=== PATIENT | female | born 1980 | race Caucasian/White ===

== ENCOUNTER 2018-03-07 01:02 | Outpatient (CLI) | payer MEDICAID, SELFPAY ==
[2018-03-07 11:52] LABS: ALT 19 U/L (12-78); AST 12 U/L (15-37); Albumin 3.6 g/dL (3.4-5.0); Alkaline Phosphatase 36 U/L (46-116); Anion Gap 9.2 mmol/L (3-11); BUN 17 mg/dL (7-18); Bilirubin, Total 0.5 mg/dL (0.2-1.0); CO2 24.8 mmol/L (21.0-32.0); CREATININE 0.74 mg/dL (0.55-1.02); Calcium 8.6 mg/dL (8.5-10.1); Chloride 105 mmol/L (98-107); Cholesterol 244 mg/dL (50-200); Glucose 92 mg/dL (70-100); HDL Cholesterol 61 mg/dL (40-60); LDL CHOLESTEROL 173 mg/dL (<100); Potassium 4.9 mmol/L (3.5-5.1); Sodium 139 mmol/L (136-145); Total Protein 6.9 g/dL (6.4-8.2); Triglyceride 53 mg/dL (30-150)
== END 2018-03-07 01:22 ==
DX: B07.0 Plantar wart (principal); E78.2 Mixed hyperlipidemia; F17.200 Nicotine dependence, unspecified, uncomplicated
CPT/HCPCS: 36415; 80053; 80061; 83721

== ENCOUNTER 2020-10-28 07:01 | Outpatient (CLI) | payer MEDICAID, SELFPAY ==
[2020-10-29 14:15] LABS: COVID-19 RT-PCR UVMMC Result Negative (Negative)
== END 2020-10-28 07:02 | disposition home or self-care (01) ==
PROVIDERS: PCP Nurse Practitioner; Visit Provider Nurse Practitioner
DX: Z20.822 Contact with and (suspected) exposure to COVID-19 (principal)
CPT/HCPCS: U0003

== ENCOUNTER 2020-11-04 03:17 | Outpatient (CLI) | payer MEDICAID, SELFPAY ==
[2020-11-05 19:14] LABS: COVID-19 RT-PCR UVMMC Result Negative (Negative)
== END 2020-11-04 03:18 | disposition home or self-care (01) ==
LOC: LBO 03:17
PROVIDERS: PCP Nurse Practitioner; Visit Provider Nurse Practitioner
DX: Z20.822 Contact with and (suspected) exposure to COVID-19 (principal)
CPT/HCPCS: U0003

== ENCOUNTER 2024-08-17 14:39 | Emergency (ER) | payer MEDICAID, SELFPAY ==
--- NOTE | 2024-08-17 14:45 | DI.RAD_ITS ---
Exam(s) XR KNEE LT 3V AP,LAT,SURESH EXAM: XR KNEE LT 3V AP,LAT,SURESH CLINICAL HISTORY: ski injury L knee pain. TECHNIQUE: 2D digital imaging was performed. Three views. COMPARISON: No exams were available for comparison FINDINGS: BONES: There is a fracture at the level of the tibial spines which appears mildly comminuted but not significantly displaced. No bony destructive lesion is seen. JOINTS: The knee is normally aligned. A large hemarthrosis is seen. SOFT TISSUE: Normal. IMPRESSION: Mildly comminuted fracture at the level of the tibial spines. Large hemarthrosis. DATA REPOSITORY: RADIATION DOSE DELIVERED:
[2024-08-17 14:48] VITALS: BP 149/90; PULSE 102; RESP 15; TEMP 36.4; O2SAT 98
--- NOTE | 2024-08-17 15:11 | ED.GENADUL_ITS ---
Discharge Plan Disposition Patient Disposition: Home Condition: Stable Discharge Details Clinical Impression: Closed fracture of left tibial plateau, Internal derangement of left knee Primary Care Provider: Annette Fine ED Provider: James Orr Home Meds and New Rx's Prescriptions: No Action (DME) Space Chamber Plus Spacer Inhalation Q4H PRN Qty: 1 0RF Rx Instructions: As directed albuterol sulfate [ProAir HFA] 90 mcg/actuation HFA aerosol inhaler 2 puff Inhalation Q4H PRN PRN (Reason: shortness of breath or wheezing) Qty: 1 6RF Rx Instructions: Spacer Dx 493.90 Asthma Discharge Instructions Instructions: Internal Derangement of the Knee, Lower Leg Fracture ED Additional Instructions: You were seen in the emergency department for the likely left tibial plateau fracture of your left knee. This also could be a small chip or avulsion fracture involving one of the ligaments like the ACL. You need to remain in your knee immobilizer and use crutches, do not weight-bear whatsoever. Please rest, ice, compress and elevate your leg often over the next 1 to 2 weeks while arrangements are made to see orthopedics, Dr. Zamora is aware of your imaging, we did obtain a CT scan as there is potential to need more specialized orthopedic surgeon at [facility], Dr. Zamora's office will be in touch with you regarding these nuances of orthopedic surgery. Please use therapeutic dosing of Tylenol (acetamenophen) & Advil (ibuprofen) in an alternating fashion as follows: Take 1000mg of Tylenol every 6 hours without missing doses- that is 4 times per day. [facility] in between the Tylenol dosings, take 400-600mg of Advil also on a 6 hour schedule, that is also 4 times per day. The daily maximum dosing of Tylenol is 4000mg, and the daily maximum dosing of Advil is 2400mg. This is safe to do for weeks. Please note that some common cold medications & prescription pain medications may contain acetamenophen and you need to read OTC drug labels and factor that in to maximum daily dosings. Please return for any severe unilateral swelling of the calf with skin changes and complete numbness with severe severe pain distal to the left knee. Referrals: [facility] [Provider Group] Annette Fine NP [Primary Care Provider] - Discharge Data Discharge Date/Time-TO BE ENTERED AT DEPARTURE: 08/17/24 15:53 HPI General Date/Time Provider Initiated Documentation: 08/17/24 14:42 . HPI Narrative: 44 year-old female presents to ED today by POV/wheelchair with a chief complaint of ski accident- caught an edge and twisted her L knee- patient is R-foot dominant with onset just prior to arrival. Patient was wearing a helmet, denies headstrike/LOC, has isolated L knee pain. Quality described as severe L knee pain and swelling, no radiation to numbness/tingling distally, femur pain. Severity is described as severe. Palliating factors include nothing attempted yet. Provoking factors include nothing specific. Events leading up to the incident/Associated Symptoms: Patient denies prior surgical history to left knee. Patient not anticoagulated. Related Data Home Medications ?Medication ?Instructions ?Recorded ?Confirmed inhalational spacing device (Space #1 ea 12/23/20 08/17/24 Chamber Plus) albuterol sulfate 90 mcg/actuation 2 puff inhalation Q4H PRN PRN 06/27/21 08/17/24 aerosol inhaler (ProAir HFA) shortness of breath or wheezing ##1 Previous Rx's ?Medication ?Instructions ?Recorded inhalational spacing device (Space #1 ea 12/23/20 Chamber Plus) albuterol sulfate 90 mcg/actuation 2 puff inhalation Q4H PRN PRN 06/27/21 aerosol inhaler (ProAir HFA) shortness of breath or wheezing ##1 Allergies Allergy/AdvReac Type Severity Reaction Status Date / Time erythromycin base AdvReac Unknown Nausea Verified 08/17/24 15:22 General Stated Complaint: Orthopedic VONNIE: 4 Review of Systems All systems reviewed & are unremarkable except as noted in HPI and below Exam Narrative Exam Narrative: GENERAL APPEARANCE: Well-nourished, non-toxic, awake and alert, atraumatic, no acute distress. SKIN: Warm, pink, dry, intact, without rashes/lesions/ulcerations. HEAD: Normocephalic, atraumatic, normal hair distribution for gender/age. EYES: Normal conjunctiva, no exudates on lids/lashes. ENT: Nares patent, no circumoral cyanosis, no facial swelling NECK: Supple, trachea midline, painless cervical ROM. LUNGS/CHEST: Non-labored respirations, normal A/P diameter, symmetrical expansion, no chest wall deformity HEART (CV/PV): Regular rate, L dorsalis pedis pulse 2+, no peripheral edema, no JVD. ABDOMEN: Soft, non-distended, no guarding. MSK: No cyanosis, spine midline without tenderness, normal curvature, diffuse swelling to left knee, joint line tenderness, patella mobile, no obvious ligamentous laxity with patient has significant pain response and does not tolerate special tests well, do question a positive Dioni, no fibular head tenderness or crepitus, neurovascular intact distal to left knee, femur stable NEURO: Mental Status AAOx4 - alert to person, place, time, events No facial droop, no forehead involvement. Motor: No focal weakness - strength 5/5 in bilateral UEs and LEs, proximal and distal, symmetric. Sensory: sensation intact to light touch globally. Gait NT PSYCH: euthymic, cooperative, pleasant, appropriate speech Course Vital Signs Vital signs: Vital Signs Temperature 36.4 C L 08/17/24 14:48 Pulse 102 H 08/17/24 14:48 Respiratory Rate 15 08/17/24 14:48 Blood Pressure 149/90 H 08/17/24 14:48 Pulse Oximetry 98 08/17/24 14:48 Temperature 36.4 C L 08/17/24 14:48 Temperature Source Oral 08/17/24 14:48 Pulse 102 H 08/17/24 14:48 Respiratory Rate 15 08/17/24 14:48 Blood Pressure 149/90 H 08/17/24 14:48 Blood Pressure Position Sitting 08/17/24 14:48 Pulse Oximetry 98 08/17/24 14:48 Oxygen Delivery Method Room Air 08/17/24 14:48 Oxygen Flow Rate 0 08/17/24 14:48 Medical Decision Making This dictation utilizes [id number] dictation software and may contain unedited grammatical errors. 44 year-old female presents to ED today by POV/wheelchair with a chief complaint of ski accident- caught an edge and twisted her L knee- patient is R-foot dominant with onset just prior to arrival. Patient was wearing a helmet, denies headstrike/LOC, has isolated L knee pain. Quality described as severe L knee pain and swelling, no radiation to numbness/tingling distally, femur pain. Severity is described as severe. Palliating factors include nothing attempted yet. Provoking factors include nothing specific. Events leading up to the incident/Associated Symptoms: Patient denies prior surgical history to left knee. Patients' medical history: History of torn meniscus to contralateral leg. Family and social history: Noncontributory. Pertinent exam findings / vital signs include diffuse swelling to left knee, joint line tenderness, patella mobile, no obvious ligamentous laxity with patient has significant pain response and does not tolerate special tests well, do question a positive Dioni, no fibular head tenderness or crepitus, neurovascular intact distal to left knee, femur stable. Differential / pathologies of concern include fracture, ligamentous injury of left knee, meniscus tear. Diagnostic studies of: -XR L knee, CT L knee without. -X-ray shows tibial plateau fracture, needs further CT -CT shows mildly comminuted fracture of the tibial spines as well as medial tibial plateau fracture Interventions of: -Knee immobilizer and crutches, consult with orthopedics, they will follow-up with CT results with the patient as an outpatient if they need to be referred to [facility]. ED Course/Assessment/Plan: 44-year-old female presents after ski injury, twisted her left knee, has significant findings on x-ray and CT warranting likely surgical repair there is possibly meniscus involvement as well as ligamentous injury with the nature of the tibial plateau fractures there is questionable avulsion fractures of ligaments. Placed on orthopedic follow-up list, Dr. Noah deng, counseled on significant RICE therapy and therapeutic dosing of Tylenol and ibuprofen at home and nonweightbearing, patient may need referral to [facility] in the future but this can be addressed at orthopedics visit. Findings not consistent with neurovascular compromise distal to left knee. Disposition of Closed Fracture of Left Tibial Plateau, Internal Derangement of Left Knee. Patient verbalized understanding of the plan and return to ED criteria and engaged in shared decision making. Medical Records Medical records reviewed: Yes I reviewed the patient's medical records. Imaging Data Radiologic Study: Attestation: I personally reviewed and interpreted this imaging study as follows: Imaging: X-Ray Radiologist's impression: EXAM: XR KNEE LT 3V AP,LAT,SURESH CLINICAL HISTORY: ski injury L knee pain. TECHNIQUE: 2D digital imaging was performed. Three views. COMPARISON: No exams were available for comparison FINDINGS: BONES: There is a fracture at the level of the tibial spines which appears mildly comminuted but not significantly displaced. No bony destructive lesion is seen. JOINTS: The knee is normally aligned. A large hemarthrosis is seen. SOFT TISSUE: Normal. IMPRESSION: Mildly comminuted fracture at the level of the tibial spines. Large hemarthrosis. Radiologic Study #2: Attestation: I personally reviewed and interpreted this imaging study as follows: Imaging: CT Scan Radiologist's impression: EXAM: CT LOWER EXTREMITY LT WO CLINICAL HISTORY: L tibial plateau fx. TECHNIQUE: Imaging Protocol: Axial computed tomography images with coronal and sagittal reformatted images were created and reviewed. CONTRAST MATERIAL: Noncontrast COMPARISON: CR XR KNEE LT 3V AP,LAT,SURESH from 08/17/2024 FINDINGS: Bones: There is fracture sent knee mainly transversely through the tibial spin es. There are few adjacent tiny comminuted fragments. There is an additional fracture of the lateral tibial plateau the shows no significant depression. There is lineal sclerosis in the subcortical region of the medial tibial plateau which could indicate additional mild compaction fracture. No discrete fracture line. The distal femur and patella appear intact. No cellulitic or osteomyelitic changes are identified. No lytic or sclerotic lesions are identified. Joints: Large hemarthrosis. There is no significant joint space narrowing. No significant periarticular spurring. Soft Tissues: Normal. IMPRESSION: Mildly comminuted fracture at the tibial spines. Lateral tibial plateau fracture with minimal depression. Question of nondepressed subcortical fracture of the medial tibial plateau. Quality:SDOH Health Related Social Needs: No Data to Display PFSH All Active Problems (Updated 08/17/24 @ 15:20 by PRINCE Brock) Internal derangement of left knee (Acute) Closed fracture of left tibial plateau (Acute) Cigarette smoker (Chronic) Hyperlipidemia (Chronic) Cystic acne vulgaris (Chronic) Asthma (Chronic) Medical History (Updated 08/17/24 @ 15:20 by PRINCE Brock) Torn meniscus 2008- has been stable Depressive disorder Surgical History (Updated 07/06/22 @ 09:28 by Annette Fine NP) History of section Family History (Updated 10/17/20 @ 10:00 by Omaira Marinelli) Mother Colon cancer Hyperlipidemia Father , age 70 Lung cancer Social History (Updated 10/17/20 @ 10:00 by Omaira Marinelli) Smoking/Tobacco Use Status: Current every day Tobacco Type: cigarettes Years smoked: 25 Tobacco: How many years used: 25 Quit status: considering quitting Second Hand Exposure: Yes Smoking risk assessment performed?: Yes Alcohol Intake: current Alcohol Intake frequency: a few times a week Alcohol type: hard liquor Drug use: Never Substance use type: does not use Caregiver/Support person: No Household members: children Communication Needs: None 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[employer] Pets and animals: No Sexually active: Yes Do you think of yourself as: straight/heterosexual Current gender identity: female What is your relationship status?: living with partner How often do you talk on the phone with friends or family?: twice per week How often do you get together with friends or relatives?: once per week How often do you attend pentecostal or mu-ism services?: decline to answer Do you belong to any clubs or organized social groups?: yes Panel score (0-1 are the most socially isolated patients): 3 What type of physical activity do you participate in: weight lifting, other Details: cardio and yoga Duration: 15-30 minutes/day Frequency: 5-6 times per week Brianna/Orthodoxy: No preference Special brianna needs: No Seatbelt use: always Helmet use: Yes Helmet use: always Drive intox or ride w/intox coach tour driver: No PAWSS Have you Been Recently Intoxicated or Drunk Within the Last 30 days?: No Have you Ever Experienced Previous Episodes of Alcohol Withdrawal?: No Have you ever Experienced Withdrawal Seizures?: No Have you ever Experienced Delirium Tremens(DT)s?: No Have you ever undergone Alcohol Rehabilitation Treatment (i.e, inpt ot outpatient treatment programs)?: No Have you ever Experienced Blackouts?: No Have you ever Combined Alcohol with other Downers within the last 90 days?: No Have you ever Combined Alcohol with any other Substance of Abuse during the last 90 days?: No Positive Blood Alcohol level on Presentation? [PCS.BAL]: No Evidence of Increased Autonomic Activity (i.e. HR>120, tremor, sweating, agitation, nausea)?: No Result: 0
--- NOTE | 2024-08-17 15:15 | DI.CT_ITS ---
Exam(s) CT LOWER EXTREMITY LT WO EXAM: CT LOWER EXTREMITY LT WO CLINICAL HISTORY: L tibial plateau fx. TECHNIQUE: Imaging Protocol: Axial computed tomography images with coronal and sagittal reformatted images were created and reviewed. CONTRAST MATERIAL: Noncontrast COMPARISON: CR XR KNEE LT 3V AP,LAT,SURESH from 08/17/2024 FINDINGS: Bones: There is fracture sent knee mainly transversely through the tibial spines. There are few blanche cent tiny comminuted fragments. There is an additional fracture of the lateral tibial plateau the sh ows no significant depression. There is lineal sclerosis in the subcortical region of the medial tib ial plateau which could indicate additional mild compaction fracture. No discrete fracture line. Th e distal femur and patella appear intact. No cellulitic or osteomyelitic changes are identified. No lytic or sclerotic lesions are identified. Joints: Large hemarthrosis. There is no significant joint space narrowing. No significant periartic ular spurring. Soft Tissues: Normal. IMPRESSION: Mildly comminuted fracture at the tibial spines. Lateral tibial plateau fracture with minimal depression. Question of nondepressed subcortical fracture of the medial tibial plateau. RADIATION DOSE DELIVERED: Total DLP DATA REPOSITORY: All CT scans at this facility are submitted to the National Radiology Data Registry (NRDR) Dose Index Registry (DIR) with the [employer] (ACR). RADIATION OPTIMIZATION: All CT scans at this facility use at least one of these dose optimization te chniques: automated exposure control; mA and/or kV adjustment per patient size (includes targeted exa ms where dose is matched to clinical indication); or iterative reconstruction.
[2024-08-17] MEDS: Acetaminophen 500 MG TAB 1000 MG PO (15:16)
[2024-08-17] MEDS: Ibuprofen 400 MG TAB PO (15:16)
[2024-08-17 15:46] VITALS: BP 146/99; PULSE 99; RESP 16; O2SAT 98
== END 2024-08-17 15:53 | disposition home or self-care (01) ==
LOC: ER 15:41
PROVIDERS: Emergency Provider Physician Assistant; PCP Nurse Practitioner Family
DX: S82.142A Displaced bicondylar fracture of left tibia, initial encounter for closed fracture (principal); M23.92 Unspecified internal derangement of left knee
CPT/HCPCS: 27530; 73562; 99284; 73700; 99283

== ENCOUNTER 2024-08-19 01:11 | Outpatient (CLI) | payer MEDICAID, SELFPAY ==
--- NOTE | 2024-08-19 07:30 | DI.MRI_ITS ---
Exam(s) MR LOWER JOINT LT WO EXAM: MR LOWER JOINT LT WO CLINICAL HISTORY: ? ACL TEAR,INTERNAL DERANGEMENT LT KNEE,CLOSED FX LT TIBIAL PLATEAU,M23.92 TECHNIQUE: Multiplanar multisequence MRI of the knee was performed. COMPARISON: CT CT LOWER EXTREMITY LT WO from 08/17/2024 Plain x-rays 08/17/2024 also reviewed. FINDINGS: EFFUSION: There is a prominent joint effusion. EXTRA-ARTICULAR SOFT TISSUES: There is also significant amount edema in the soft tissues around the k nee. Posteriorly there appears to be some tearing at the origin of the lateral head of the gastrocne mius at posterior aspect of the distal femur. MARROW:There are tibial plateau fractures both involving the lateral tibial plateau which exhibits mi nimal depression posteriorly. There is also fracture line of the tibial plateau underlying the tibia l spines. This prominent fracture fragment contains the tibial attachment site of the anterior cruci ate ligament, this fracture fragment measuring 2.4 cm wide by 2.5 cm AP by 1 cm craniocaudal. The AC L itself exhibits some increased signal but no high-grade tear. PATELLOFEMORAL COMPARTMENT: Quadriceps tendon is intact. There is significant amount of subcutaneous edema anterior to the patellar ligament but there is no evidence of patellar ligament tear nor signa l abnormality at the anterior tibial tubercle. There is some edema noted in the anterior intra-artic ular Hoffa fat pad. There is no significant thinning of the retropatellar cartilage. There is no intraosseous signal abnormality seen in the patella. No intraosseous signal to suggest re cent patellar dislocation. No evidence of fissure nor significant chondral defect. No osteochondral defect at this level. CRUCIATE LIGAMENTS: There is some signal abnormality in the anterior cruciate ligament but the ACL it self does not exhibit evidence of high-grade tearing nor detachment from the tibial plateau fracture fragment to which it is attached to. This fracture fragment is not significantly displaced.The poste rior cruciate ligament is intact. MEDIAL COMPARTMENT/MEDIAL MENISCUS: There is no oblique tear in the outer 3rd of the posterior horn o f the medial meniscus extending into the body. The meniscal root appears intact. There is also obli que tear in the anterior horn of the medial meniscus just above fracture level.. There are no chondral defects, osteochondral defects, nor subarticular marrow edema in the medial fem oral condyle. There are no osteophytes evident in the medial compartment. MEDIAL COLLATERAL LIGAMENT: There is significant high-grade tearing of the medial collateral ligament this is predominately at and above the articulation level. LATERAL COMPARTMENT/LATERAL MENISCUS: There is no evidence of tear of the lateral meniscus.There is m ild subarticular edema in the main weight-bearing surface of the lateral femoral condyle but no forme d osteochondral defect at this level. The subjacent tibial plateau is fractured but without signific ant depression of the lateral tibial plateau evident. ILIOTIBIAL BAND: There is some thinning of the iliotibial band and outward bowing by joint effusion. LATERAL COLLATERAL LIGAMENT COMPLEX: There is partial tearing of the insertion of the biceps femora w rists tendon upon the fibular head styloid. There is also partial tearing of the fibular collateral ligament 1 cm below its insertion upon the outer aspect of the lateral femoral condyle. There is arj e abnormal intramuscular signal in the popliteus but there is no evidence of tear of the popliteus te ndon. IMPRESSION: 1. Tibial plateau fractures predominately involving lateral tibial plateau and sub spinous. Although there is no high-grade tear of the ACL itself, there is a fracture line underlying the tibial bone a ttachment site of the ACL, effectively decreasing the function of the ACL itself. The posterior cruc iate ligament is intact. 2. Significant high-grade tearing of the medial collateral ligament and medial retinaculum. There is also partial tearing of the upper aspect of the fibular collateral ligament and signal abnormality a t the fibular styloid insertion site the biceps femora wrists component of the LCL complex 3. There is an oblique tear of the posterior horn and body of the medial meniscus. There is also an independent tear in the anterior horn of the medial meniscus. There are no obvious tears of the late ral meniscus 4. Other findings as above DATA REPOSITORY:
== END 2024-08-19 01:31 ==
LOC: DI 01:11
PROVIDERS: PCP Nurse Practitioner Family; Visit Provider Student in an Organized Health Care Education/Training Program
DX: S82.142A Displaced bicondylar fracture of left tibia, initial encounter for closed fracture; S83.412A Sprain of medial collateral ligament of left knee, initial encounter; X58.XXXA Exposure to other specified factors, initial encounter
CPT/HCPCS: 73721

== ENCOUNTER 2024-09-30 14:39 | Outpatient (CLI) | payer MEDICAID, SELFPAY ==
--- NOTE | 2024-09-30 13:45 | DI.RAD_ITS ---
Exam(s) XR KNEE LT 2V AP,LAT EXAM: XR KNEE LT 2V AP,LAT CLINICAL HISTORY: F/U FRACTURE. TECHNIQUE: 2D digital imaging was performed. Three views. COMPARISON: CR XR KNEE LT 3V AP,LAT,SURESH from 08/17/2024 MR MR LOWER JOINT LT WO from 08/19/2024 FINDINGS: BONES: Stable alignment of the fracture at the tibial spines. No change in position of small commin uted fragment. No bony destructive lesion is seen. Improvement in the area of sclerosis at the lat eral tibial plateau. No discrete fracture identified at the tibial plateau. JOINTS: The knee is normally aligned. The joint spaces are maintained. Decreased size of previously noted hemarthrosis. SOFT TISSUE: Normal. IMPRESSION: Stable alignment of fracture at the tibial spines. DATA REPOSITORY: RADIATION DOSE DELIVERED:
== END 2024-09-30 14:40 | disposition home or self-care (01) ==
LOC: DIORS 14:39
PROVIDERS: PCP Nurse Practitioner Family; Visit Provider Student in an Organized Health Care Education/Training Program
DX: S82.142A Displaced bicondylar fracture of left tibia, initial encounter for closed fracture (principal); S83.242A Other tear of medial meniscus, current injury, left knee, initial encounter; S83.412A Sprain of medial collateral ligament of left knee, initial encounter
CPT/HCPCS: 73560